=== PATIENT | male | born 1930 | race Caucasian/White ===

== ENCOUNTER 2017-10-28 14:42 | Emergency (ER) | payer OTHER, BC ==
[2017-10-28 14:56] VITALS: O2SAT 92
--- NOTE | 2017-10-28 15:52 | EDPHY ---
H & P Time Seen by Provider: 10/28/17 15:40 HPI/ROS: CHIEF COMPLAINT: Fall, left rib pain HISTORY OF PRESENT ILLNESS: This patient is a non-anticoagulated 87 year old male complaining of left rib pain secondary to a mechanical fall yesterday. He was opening his front door and a rima of wind pulled the door and knocked him over. After about 15 minutes , a neighbor found him and helped him up. He was able to ambulate following this. He had a mild headache yesterday, but today it has completely resolved. He currently complains of left lower rib pain. Associated with mild shortness of breath. He has taken two acetaminophen with some relief of pain. No head or neck injury. No chest pain, abdominal pain or other injuries. REVIEW OF SYSTEMS: A 10 point review of systems was performed and is negative with the exception of the elements mentioned in the history of present illness. Past Medical/Surgical History: Diabetes mellitus type II (Metformin) Hypertension (Amlodipine, lisinopril) Hyperlipidemia (Lipitor) Social History: Retired. Lives in [place]. Daughter at bedside. Smoking Status: Never smoked Physical Exam: General Appearance: Alert, joking, pleasant Head: Atraumatic, no scalp swelling or tenderness Eyes: No conjunctival erythema, PERRLA, EOMI ENT, Mouth: no oral trauma, no bony tenderness Neck: Non-tender, range of motion without pain Respiratory: Left lateral chest wall tenderness, lungs clear bilaterally Cardiovascular: Regular rate and rhythm Abdomen: Abdomen is soft and non tender Skin: No lacerations, no abrasions Back: No midline T/L/S tenderness Extremities: Pelvis is stable and nontender; no extremity tenderness or deformity Neurological: A&Ox3, normal motor function, normal sensory exam, cranial nerves intact Psychiatric: Mood and affect normal Constitutional: Initial Vital Signs Temperature (C) 37.0 C 10/28/17 14:53 Heart Rate 71 10/28/17 14:53 Respiratory Rate 16 10/28/17 14:53 Blood Pressure 170/80 H 10/28/17 14:53 O2 Sat (%) 92 10/28/17 14:53 O2 Delivery Mode Room Air Allergies/Adverse Reactions: No Known Allergies Allergy (Unverified 06/03/10 18:54) Home Medications: Medication Instructions Recorded Lipitor 20 mg 06/03/10 METFORMIN HCL 06/03/10 Protonix 06/03/10 Aspirin 81mg (*) 10/28/17 Lisinopril 10/28/17 Medical Decision Making - Diagnostics Imaging Results: Chest X-Ray 10/28/17 15:41 Impression: 1. Acute left seventh rib fracture. 2. 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 Imaging: I viewed and interpreted images myself ED Course/Re-evaluation: 87 y/o male presents with left lateral chest wall pain and tenderness secondary to a mechanical fall yesterday. No head trauma or pain. Plan for chest x-ray. Reviewed x-ray. Evidence of acute left seventh rib fracture. Reassessed patient. Discussed imaging results. Pt comfortable going home, able to walk with a steady gait. Plan to d/c home in good condition with incentive spirometer. F/u and return precautions discussed. He is comfortable with this plan. Differential Diagnosis: Differential diagnosis includes though it is not limited to fracture, intracranial hemorrhage, pneumothorax, hemothorax, intra-abdominal hemorrhage. - Data Points Medications Given: Discontinued Medications Miscellaneous Medication (Icy Hot Lidocaine/Menthol 4%/1% Patch) 1 patch TD EDNOW ONE Stop: 10/28/17 17:04 Last Admin: 10/28/17 17:18 Dose: 1 patch Departure - Departure Disposition: Home, Routine, Self-Care Clinical Impression: Fracture of one rib, left side, initial encounter for closed fracture Condition: Good Instructions: Rib Fracture (ED) Additional Instructions: Follow up with your primary doctor next week for reevaluation. Use incentive spirometer as directed every two hours while awake. Take ibuprofen 600mg every 6-8 hours as needed for pain. You may also use a lidocaine patch (over the counter). Return to the emergency department for fever, worsening pain, shortness of breath or difficulty breathing, abdominal pain, blood in urine or other concerns. Referrals: Trey Gabriel MD [Primary Care Provider] - As per Instructions Report Scribed for: Diamond Calles Report Scribed by: Lisa Gimenez Date of Report: 10/28/17 Time of Report: 15:58 Physician Review and Approval Statement: 10/28/17 15:58 Portions of this note were transcribed by a medical educator. I personally performed a history, physical exam, medical decision making, and confirmed accuracy of information the transcribed note.
[2017-10-28] MEDS ORDERED: LIDOCAINE 4%/MENTHOL 1% PATCH TD ONE (17:03)
[2017-10-28 17:10] VITALS: BP 161/79; PULSE 75; RESP 18; TEMP 98.2
[2017-10-28] MEDS ORDERED: PATCH REMOVAL 1 EA PATCH TD SCH (21:00)
== END 2017-10-28 17:28 | disposition home or self-care (01) ==
DX: S22.31XA Fracture of one rib, right side, initial encounter for closed fracture (principal); E11.9 Type 2 diabetes mellitus without complications; I10 Essential (primary) hypertension; Z79.82 Long term (current) use of aspirin; Z79.84 Long term (current) use of oral hypoglycemic drugs; W18.39XA Other fall on same level, initial encounter